=== PATIENT | female | born 1960 ===

== ENCOUNTER → 2017-09-02 | Outpatient (CLI) | payer BC ==
[2017-09-02 11:51] LABS: LDL CHOLESTEROL 97 mg/dl
--- NOTE | 2017-09-02 12:17 | RADIOLOGY IMAGING REPORT ---
FACILITY: [facility] [place] PATIENT NAME: Shavon Qureshi : 1960 MR: [id number] V: [id number] EXAM DATE: ORDERING PHYSICIAN: PASTOR NICE TECHNOLOGIST: Location: [facility] Patient: Shavon Qureshi : 1960 Visit/Account:[id number] Date of Sevice: 09/02/2017 Clinical history: Screening, postmenopausal. Comparison: None. LUMBAR SPINE: The bone mineral density (BMD) measured from L1-L4 correlates with a Z-score of 2.9 and a T-score of 1.3 which is normal as defined by the World Health Organization. The corresponding risk of fracture in the lumbar spine is not increased compared with a young adult reference population. HIP: Bone mineral density (BMD) measured in the left total hip region correlates with a Z-score of 0.1 and a T-score of -1.1 which is osteopenia as defined by the World Health Organization. The correspondin g risk of fracture in the hip is increased 2-3 times compared with a young adult reference population . Bone mineral density (BMD) measured in the left femoral neck correlates with a Z-score of 0.2 and a T -score of -1.2 which is osteopenia as defined by the World Health Organization. The corresponding ri sk of fracture in the hip is increased 1-2 times compared with a young adult reference population. Bone mineral density (BMD) measured in the left Femoral Neck region measures 0.868 g/cm2. Impression: 1. Lumbar spine: Normal. 2. Left femoral neck: Osteopenia. 3. Left femoral neck Bone Mineral Density is 0.868 g/cm2 The next DEXA scan of this patient should include the following sites: Lumbar spine and left hip. FRAX? WHO Fracture Risk Assessment Tool link: http://www.shef.ac.uk/FRAX/tool.jsp?locationValue=9 PLEASE NOTE: 1) The World Health Organization defines low BMD as follows: T-score Normal > -1 Osteopenia < -1 and > -2.5 Osteoporosis < -2.5 without fractures Established osteoporosis < -2.5 with fractures 2) In general, you may wish to consider: Diagnosis Treatment Follow-up DEXA Normal BMD Prevention 2-3 years Osteopenia Prevention/therapy 1-2 years Osteoporosis Therapy Yearly 3) Fracture risk estimated from the T-score is more accurate for vertebral fractures (often spontane ous) than for hip fractures. Report Dictated By: Shelia Galarza MD at 09/02/2017 12:03 PM Report E-Signed By: Shelia Galarza MD at 09/02/2017 12:12 PM WSN:[email or web address]
--- NOTE | 2017-09-06 09:42 | RADIOLOGY IMAGING REPORT ---
FACILITY: [facility] PATIENT NAME: KRISTINA MCCORMICK : [id number] MR: [id number] V: [id number] EXAM DATE: [id number] ORDERING PHYSICIAN: PASTOR NICE TECHNOLOGIST: Steffi Ferguson PROCEDURE:BILATERAL DIGITAL SCREENING MAMMOGRAM WITH CAD ASSISTED INTERPRETATION AND 3D BREAST TOMOSYNTHESIS. COMPARISON:Prior mammograms dated 11/13/16, 09/25/15, 09/21/14 and 08/18/13. INDICATIONS:SCREENING FINDINGS: There are bilateral silicone breast implants. A small amount of fibroglandular tissue is seen anterior to the implants. There is no evidence of malignant appearing mass, malignant appearing calcification or other secondary sign of malignancy in either breast. DIAGNOSTIC CATEGORY 2--BENIGN FINDING. RECOMMENDATIONS: ROUTINE MAMMOGRAM AND CLINICAL EVALUATION. IMPRESSION: BI-RADS 2: No significant abnormality seen. Images were reviewed with R2CAD and 3D breast tomosynthesis. Dictated by: Diane Haskins M.D. on 09/03/2017 at 14:49 Transcribed by: ALEXSANDRA on 09/05/2017 at 14:46 Approved by: Diane Haskins M.D. on 09/06/2017 at 9:40 [facility]
== END ==
LOC: RAD 10:18
PROVIDERS: ATTEND Nurse Practitioner Family
DX: Z00.00 Encounter for general adult medical examination without abnormal findings (principal); Z11.59 Encounter for screening for other viral diseases; Z11.4 Encounter for screening for human immunodeficiency virus [HIV]; Z13.29 Encounter for screening for other suspected endocrine disorder; Z13.220 Encounter for screening for lipoid disorders; F41.9 Anxiety disorder, unspecified; J44.9 Chronic obstructive pulmonary disease, unspecified; Z13.820 Encounter for screening for osteoporosis; Z12.31 Encounter for screening mammogram for malignant neoplasm of breast; M85.88 Other specified disorders of bone density and structure, other site
CPT/HCPCS: 36415; 77063; 77067; 77080; 82040; 82247; 82310; 82374; 82435; 82465; 82565; 82947; 83718; 84075; 84132; 84155; 84295; 84443; 84450; 84460; 84478; 84520; 86703; 86803

== ENCOUNTER → 2018-10-27 | Outpatient (CLI) | payer BC ==
--- NOTE | 2018-10-27 15:05 | RADIOLOGY IMAGING REPORT ---
FACILITY: [facility] PATIENT NAME: KRISTINA MCCORMICK : [id number] MR: [id number] V: [id number] EXAM DATE: [id number] ORDERING PHYSICIAN: PASTOR NICE TECHNOLOGIST: Ju Leroy PROCEDURE:BILATERAL DIGITAL SCREENING MAMMOGRAM WITH CAD ASSISTED INTERPRETATION & 3D TOMOSYNTHESIS COMPARISON:Prior mammograms dated 09/02/17, 11/13/16, 09/25/15, 09/21/14, 08/18/13 INDICATIONS:SCREENING FINDINGS: There are scattered areas of fibroglandular density throughout the breasts. There are bilateral breast implants in place without evidence of implant rupture or leakage. In the upper portion of the Right breast on the Right MLO implant displacement view is a small grouping of ovoid calcifications that were present on prior mammograms dating back to 2013. Just posterior to mid nipple line in the Left MLO implant displacement view is a small grouping of ovoid calcifications for which spot magnification view is recommended. DIAGNOSTIC CATEGORY 0--INCOMPLETE: NEED ADDITIONAL IMAGING EVALUATION. RECOMMENDATIONS: ADDITIONAL MAMMOGRAPHIC VIEWS REQUIRED: LEFT BREAST. IMPRESSION: BIRADS 0: Incomplete - need additional imaging evaluation. Additional views of the Left breast recommended as described. Dictated by: Diane Haskins M.D. on 10/27/2018 at 11:08 Transcribed by: CATIE on 10/27/2018 at 14:20 Approved by: Diane Haskins M.D. on 10/27/2018 at 15:04 [facility]
== END ==
LOC: MAMO 00:07
PROVIDERS: ATTEND Nurse Practitioner Family
DX: Z12.31 Encounter for screening mammogram for malignant neoplasm of breast (principal); R92.8 Other abnormal and inconclusive findings on diagnostic imaging of breast
CPT/HCPCS: 77063; 77067

== ENCOUNTER → 2018-11-15 | Outpatient (CLI) | payer BC ==
--- NOTE | 2018-11-15 17:17 | RADIOLOGY IMAGING REPORT ---
FACILITY: [facility] PATIENT NAME: KRISTINA MCCORMICK : [id number] MR: [id number] V: [id number] EXAM DATE: ORDERING PHYSICIAN: MCKENNA HERNANDEZ TECHNOLOGIST: Steffi Ferguson PROCEDURE:LEFT DIGITAL DIAGNOSTIC MAMMOGRAM WITH CAD ASSISTED INTERPRETATION. COMPARISON:Prior mammograms 10/27/18, 09/02/17, 11/13/16, 09/25/15, 09/21/14, 08/18/13. INDICATIONS:further evaluation FINDINGS: The patient returns for Spot magnification views with implant displacement in the Left MLO & CC projections. Just posterior and slightly medial to mid nipple line in the posterior 1/3 of the Left breast on the Left CC implant displacement view is a collection of pleomorphic calcifications. This is identified also in the posterior 1/3 on the Left MLO implant displacement view both superior and inferior to the mid nipple line. These calcifications are not identified on the prior mammograms earlier than 10/27/18. This area may not have been included on the prior mammograms however sense the corniest cannot be determined with complete certainty. Stereotactic biopsy recommended for further evaluation. If these calcifications cannot be localized stereotacticly then surgical excision coordinated with mammographic hook wire localization recommended. DIAGNOSTIC CATEGORY 4--SUSPICIOUS FOR MALIGNANCY. RECOMMENDATIONS: STEREOTACTIC BREAST BIOPSY: LEFT BREAST. SURGICAL BIOPSY COORDINATED WITH MAMMOGRAM HOOKWIRE LOCALIZATION: LEFT BREAST. IMPRESSION: BIRADS 4: Suspicious for malignancy. Stereotactic biopsy of the pleomorphic calcifications in the posterior 1/3 of the Left breast as detailed above. These cannot be localized stereotacticly then surgical excision coordinated with mammographic hook wire localization recommended. Dictated by: Diane Haskins M.D. on 11/15/2018 at 14:36 Transcribed by: LEXI on 11/15/2018 at 15:15 Approved by: Diane Haskins M.D. on 11/15/2018 at 17:16 [facility]
== END ==
LOC: MAMO 00:47
PROVIDERS: ATTEND Nurse Practitioner
DX: R92.1 Mammographic calcification found on diagnostic imaging of breast (principal); Z98.82 Breast implant status
CPT/HCPCS: 77061; 77065